=== PATIENT | male | born 1965 | race Caucasian/White ===

== ENCOUNTER 2018-10-12 18:27 | Emergency (ER) | payer BC, OTHER ==
--- OUTSIDE RECORDS SUMMARY | 2018-10-12 19:03 | XMS REPORT | Continuity of Care Document ---
:1965 External Reference #:[id number] Author Name Bishop Flor M.D. Address [address] [facility] [address] [place] [address] Care Team Providers Name Role Phone Bishop Flor MD Care Team Information Communication Specialist Unavailable Payers Type Date Identification Numbers Payment Provider Subscriber Effective: Policy Number: BC/ANTHONY [employer] Duke Maciel 2017 [id number] [facility] [address] [address] [place] [address] Effective: 2017 Policy Number: [id number] [facility] Duke Maciel Expires: 2018 PayID: [id number] [address] [place] [address] Expires: 2018 Policy Number: Medicaid/[employer] Duke Maciel [id number] PayID: [id number] [address] [place] [address] Effective: 2013 Policy Number: [id number] JUDITH Polo Maciel Expires: 2014 PayID: [id number] [address] [address] [place] [address] Expires: 2013 Policy Number: [id number] JUDITH Polo Maciel PayID: [id number] [address] [address] [place] [address] Advance Directives Description No Information Available Problems Date Description Provider Status Onset: 02/17/2012 Impotence of organic origin Franki Salas Active Onset: 02/17/2012 Tobacco user Bishop Flor M.D. Active Onset: 02/17/2012 Anxiety state Franki Salas Active Onset: 02/17/2012 Coronary arteriosclerosis Bishop Flor M.D. Active Onset: 02/17/2012 Periapical abscess without sinus Franki Salas Resolved tract Resolved: 10/09/2016 Onset: 02/17/2012 Acute sinusitis Bishop Flor M.D. Resolved Resolved: 10/09/2016 Onset: 02/17/2012 Acute bronchitis Bishop Flor M.D. Resolved Resolved: 10/09/2016 Onset: 02/17/2012 Otitis media Bishop Flor M.D. 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 ETOH Use Denies alcohol use Tobacco Use Start: Unknown Patient is a current 1/2 PACK A DAY, smoker, smokes every day SMOKING SINCE AGE 14 Smoking Status Reviewed: 09/30/18 Patient is a current 1/2 PACK A DAY, smoker, smokes every day SMOKING SINCE AGE 14 Seat Belt/Car Seat Always uses seat belt Smoke Alarms Yes Smoke Alarms Carbon Monoxide Detector: Yes Allergies, Adverse Reactions, Alerts Date Description Reaction Status Severity Comments 12/22/2011 Sulfa Antibiotics chest pains Active Medications Medication Date Status Form Strength Qnty SIG Indications Ordering Provider Neurontin Active Capsules 300mg 90caps 1 cap by M51.37 Bishop Flor 9 mouth Stevan Barrientos three times a day M50.30 M25.512 Levitra 08/13/2017 Active Tablets 20mg 6tabs 1 tab by mouth N52.9 Chacho , once as needed do Bishop Barrientos, not take more M.D. than one dose in a day---doses should be 24 hours apart Ibuprofen 01/02/2017 Active Tablets 800mg 90tabs 1 tab by mouth M25.512 Chacho, every 8 hours Ahmad M., with food as M.D. needed for pain M51.37 M50.30 Meloxicam 08/31/2018 Hx Tablets 7.5mg 60tabs take one tablet M51.37 Chacho, Ahvirgil Barrientos, - by mouth twice a M.D. 10/01/2018 day-take with food M50.30 M25.512 Bupropion HCL 04/09/2018 - Hx Tablets ER 150mg 30tabs take one F17.210 Chacho, ER (XL) 07/10/2018 24HR tablet by Bishop Barrientos, mouth every M.D. morning Amoxicillin 04/01/2018 - Hx Tablets 500mg 40tabs 2 by mouth J20.9 Chacho , 04/11/2018 twice a day Bishop Barrientos M.D. Prednisone 04/01/2018 - Hx Tablets 20mg 8tabs 2 tab by J20.9 Chacho, 04/08/2018 mouth daily Bishop Barrientos, 4 days M.D. Amoxicillin 02/05/2018 - Hx Tablets 500mg 40tabs 2 by mouth J20.9 Chacho , 02/11/2018 twice a day Bishop Barrientos M.D. Prednisone 02/05/2018 - Hx Tablets 20mg 8tabs 2 tab by J20.9 Chacho, 02/08/2018 mouth daily Bishop MRory, 4 days M.D. Topiramate 05/14/2017 - Hx Tablets 50mg 90tabs tab one by M51.37 Chacho, 10/01/2018 mouth three Ahmad M., times a day M.D. M50.30 Gabapentin 01/27/2017 - Hx Capsules 100mg 90caps tab 1 by M25.512 Chacho , 03/06/2017 mouth three Ahmad M., times a day M.D. Oxycodone HCL 10/31/2016 - Hx Tablets 10mg 90tabs tab one M79.605 Chacho , 08/30/2018 three times Ahmad M., a day M.D. M51.37 M50.30 Nystatin 11/29/2013 - Hx Suspension 750408Bxes/ML 180cc 6 cc swish Chacho, 12/13/2016 and swallow Ahmad tid x 10 M., M.D. days Vitamin D-1000 11/22/2013 - Hx Tablets 1000Unit OTC 1 by mouth E5 [facility] , Maximum 09/14/2018 twice a day 5. Ahmad Strength 9 M., M.D. Diflucan 11/21/2013 - Hx Tablets 100mg 10tabs 1 by mouth 11 Chacho, 12/01/2013 every day x 2. Ahmad 10 days 0 M., M.D. Azithromycin 11/21/2013 - Hx Tablets 250mg 6tabs take two 38 Chacho, 11/26/2013 tablets by 1. Ahmad mouth as one 4 M., M.D. dose on the first day then take one daily thereafter x 4 days Chantix 11/21/2013 - Hx Tablets 0.5mg X 11 & 1 56tabs use as F1 [facility], 12/13/2016 mg X 42 directed 7. Jaminmad 21 M.Stevan 0 Zithromax Z-Rudolph 07/28/2012 - Hx Tablets 250mg 6tabs uad [facility], 08/02/2012 Bishop Barrientos M.D. Immunizations Description No Information Available Vital Signs Date Vital Result Comment 10/01/2018 1:41pm BP Systolic 126 mmHg BP Diastolic 64 mmHg Height 68 inches 5'8" Weight 135.00 lb BMI (Body Mass Index) 20.5 kg/m2 Heart Rate 70 /min Respiratory Rate 16 /min 08/31/2018 10:06am BP Systolic 122 mmHg BP Diastolic 64 mmHg Height 68 inches 5'8" Weight 136.00 lb BMI (Body Mass Index) 20.7 kg/m2 Heart Rate 68 /min Respiratory Rate 16 /min 07/30/2018 10:57am BP Systolic 128 mmHg BP Diastolic 70 mmHg Height 68 inches 5'8" Weight 142.00 lb BMI (Body Mass Index) 21.6 kg/m2 Heart Rate 74 /min Respiratory Rate 16 /min 05/11/2018 10:27am BP Systolic 124 mmHg BP Diastolic 66 mmHg Height 68 inches 5'8" Weight 136.00 lb BMI (Body Mass Index) 20.7 kg/m2 Heart Rate 74 /min Respiratory Rate 16 /min 04/09/2018 3:59pm BP Systolic 110 mmHg BP Diastolic 64 mmHg Height 68 inches 5'8" Weight 136.00 lb BMI (Body Mass Index) 20.7 kg/m2 Heart Rate 67 /min Respiratory Rate 14 /min 04/01/2018 10:37am BP Systolic 110 mmHg BP Diastolic 58 mmHg Height 68 inches 5'8" Weight 135.00 lb BMI (Body Mass Index) 20.5 kg/m2 Heart Rate 70 /min Body Temperature 98.9 F Respiratory Rate 16 /min 03/12/2018 3:30pm BP Systolic 130 mmHg BP Diastolic 64 mmHg Height 68 inches 5'8" Weight 136.00 lb BMI (Body Mass Index) 20.7 kg/m2 Heart Rate 79 /min Respiratory Rate 16 /min 02/05/2018 3:49pm BP Systolic 100 mmHg BP Diastolic 58 mmHg Height 68 inches 5'8" Weight 138.00 lb BMI (Body Mass Index) 21.0 kg/m2 Heart Rate 85 /min Body Temperature 97.8 F Respiratory Rate 16 /min 01/04/2018 1:16pm BP Systolic 118 mmHg BP Diastolic 60 mmHg Height 68 inches 5'8" Weight 142.00 lb BMI (Body Mass Index) 21.6 kg/m2 Heart Rate 60 /min Respiratory Rate 16 /min 12/01/2017 11:03am BP Systolic 126 mmHg BP Diastolic 62 mmHg Height 68 inches 5'8" Weight 138.00 lb BMI (Body Mass Index) 21.0 kg/m2 Heart Rate 72 /min Respiratory Rate 16 /min 09/16/2017 3:53pm BP Systolic 110 mmHg BP Diastolic 72 mmHg Height 68 inches 5'8" Weight 140.00 lb BMI (Body Mass Index) 21.3 kg/m2 Heart Rate 55 /min Body Temperature 98.4 F Respiratory Rate 18 /min 08/13/2017 9:08am BP Systolic 124 mmHg BP Diastolic 62 mmHg Height 67.5 inches 5'7.50" Weight 136.00 lb BMI (Body Mass Index) 21.0 kg/m2 Heart Rate 78 /min Respiratory Rate 16 /min 07/02/2017 1:50pm BP Systolic 140 mmHg BP Diastolic 68 mmHg Height 67.5 inches 5'7.50" Weight 131.00 lb BMI (Body Mass Index) 20.2 kg/m2 Heart Rate 67 /min Respiratory Rate 16 /min 05/14/2017 4:35pm BP Systolic 108 mmHg BP Diastolic 78 mmHg Height 67.5 inches 5'7.50" Weight 136.00 lb BMI (Body Mass Index) 21.0 kg/m2 Heart Rate 82 /min Respiratory Rate 16 /min 04/10/2017 3:55pm BP Systolic 132 mmHg BP Diastolic 76 mmHg Height 67.5 inches 5'7.50" Weight 131.00 lb BMI (Body Mass Index) 20.2 kg/m2 Heart Rate 77 /min Respiratory Rate 16 /min 03/20/2017 1:52pm BP Systolic 118 mmHg BP Diastolic 70 mmHg Height 67.5 inches 5'7.50" Weight 131.00 lb BMI (Body Mass Index) 20.2 kg/m2 Heart Rate 59 /min Respiratory Rate 16 /min 03/06/2017 2:03pm BP Systolic 104 mmHg BP Diastolic 62 mmHg Height 67.5 inches 5'7.50" Weight 132.00 lb BMI (Body Mass Index) 20.4 kg/m2 Heart Rate 69 /min Respiratory Rate 16 /min 01/27/2017 4:40pm BP Systolic 118 mmHg BP Diastolic 74 mmHg Height 67.5 inches 5'7.50" Weight 135.00 lb BMI (Body Mass Index) 20.8 kg/m2 Heart Rate 71 /min Respiratory Rate 16 /min 01/02/2017 3:19pm BP Systolic 140 mmHg BP Diastolic 74 mmHg Height 67.5 inches 5'7.50" Weight 132.00 lb BMI (Body Mass Index) 20.4 kg/m2 Heart Rate 64 /min Respiratory Rate 16 /min 11/28/2016 2:15pm BP Systolic 110 mmHg BP Diastolic 76 mmHg Height 67.5 inches 5'7.50" Weight 139.00 lb BMI (Body Mass Index) 21.4 kg/m2 Heart Rate 62 /min Respiratory Rate 16 /min 10/31/2016 1:51pm BP Systolic 118 mmHg BP Diastolic 80 mmHg Height 67.5 inches 5'7.50" Weight 137.00 lb BMI (Body Mass Index) 21.1 kg/m2 Heart Rate 70 /min 10/09/2016 9:58am BP Systolic 120 mmHg BP Diastolic 78 mmHg Height 67.5 inches 5'7.50" Weight 131.00 lb BMI (Body Mass Index) 20.2 kg/m2 Heart Rate 80 /min 11/21/2013 10:35am BP Systolic 118 mmHg BP Diastolic 68 mmHg Height 67.5 inches 5'7.50" Weight 146.00 lb BMI (Body Mass Index) 22.5 kg/m2 Heart Rate 82 /min 06/11/2012 10:59am BP Systolic 122 mmHg BP Diastolic 72 mmHg Height 67.5 inches 5'7.50" Weight 143.00 lb BMI (Body Mass Index) 22.1 kg/m2 Heart Rate 60 /min Respiratory Rate 16 /min 02/20/2012 10:55am BP Systolic 116 mmHg BP Diastolic 78 mmHg Height 67.5 inches 5'7.50" Weight 141.00 lb BMI (Body Mass Index) 21.8 kg/m2 Heart Rate 72 /min Respiratory Rate 12 /min Results Test Date Facility Test Result H/L Range Note Laboratory test 05/11/2018 [facility] THC-Delta- 117.9 Positive Abnormal 5 1, 2 finding 9-Cooh I <SEE NOTE> ng/mL Hydroxybupropion Negative [facility] <SEE NOTE> ng/mL Abnormal 20 3 Bupropion Negative [facility] <SEE NOTE> ng/mL Abnormal 10 4 Topiramate Negative [facility] <SEE NOTE> ng/mL Abnormal 100 5 Ethyl Glucuronide 05/11/2018 [facility] Ethyl Glucuronide Negative ng/mL N 500 PDF SEE IMAGE CBC With Diff 05/11/2018 [facility] WBC 8.6 10*3/uL (4.1-11.0) [address] [facility] (607)- - RBC 5.22 10*6/uL (4.60-6.10) HGB 15.3 g/dL (13.5-18.0) HCT 46.5 % (41.0-53.0) MCV 89.1 fL (80.0-95.0) MCH 29.2 pg (27.0-32.0) MCHC 32.8 g/dL (32.0-36.0) RDW 14.2 % (10.5-14.5) PLT 328 10*3/uL (150-450) MPV 9.2 fL (7.1-10.7) Neut % 58.0 % (35.0-75.0) Band % 1.0 % (0.0-11.0) Lymph % 31.0 % (16.0-52.0) Calvert % 9.0 % High (0.0-8.0) Baso % 1.0 % (0.0-4.0) Neut # 5.0 10*3/uL (1.8-7.7) Band # 0.1 10*3/uL Lymph # 2.7 10*3/uL (1.2-4.8) Calvert # 0.8 10*3/uL (0.0-0.8) Baso # 0.1 10*3/uL (0.0-0.2) Aniso 1+ Poik 1+ Gaurav 1+ CMP 05/11/2018 [facility] Sodium 144 mmol/L (136-145) [address] [facility] (607)- - Potassium 4.5 mmol/L (3.6-5.2) Chloride 107 mmol/L (100-108) Co2 31 mmol/L (22-31) Anion Gap 6 mmol/L Low (7-16) Urea Nitrogen 18 mg/dL (7-24) Creatinine 1.11 mg/dL (0.80-1.30) BUN/Creat Ratio 16.2 RATIO (10.0-20.0) Glucose 88 mg/dL (70-99) Calcium 9.1 mg/dL (8.4-10.2) Total Protein 6.8 g/dL (6.4-8.2) Albumin 4.1 g/dL (3.5-4.6) Globulin 2.7 g/dL (2.7-4.3) Alb/Glob Ratio 1.5 RATIO Alkaline Phosphatase 79 U/L (45-117) Bilirubin,Total 0.5 mg/dL (0.0-1.0) Ast (Sgot) 10 U/L Low (11-39) Alt (SGPT) 16 U/L (12-78) GFR >60 ml/min/1.73m2 (>59) GFR ( Amer) >60 ml/min/1.73m2 (>59) GFR Interpretation <SEE NOTE> 6 Laboratory test 05/11/2018 [facility] Magnesium 2.5 mg/dL High (1.7-2.4 ) finding [address] [facility] (607)- - Lipid Extended 05/11/2018 [facility] Appearance CLEAR (Clear) Panel [address] [employer] [facility] (607)- - Cholesterol @ 174 mg/dL (0-200) Triglyceride @ 120 mg/dL (30-200) HDL Cholesterol @ 32 mg/dL Low (>40) 7 Chol/HDL Ratio 5.4 RATIO 8 Direct LDL @ 116 mg/dL (<130) 9 VLDL (Calc) 26 mg/dL (0-30) Hemoglobin A1c 05/11/2018 [facility] Hemoglobin A1c @ 5.3 % (4.0-6.0) 10 [address] [facility] (604)- - Est Average Glucose 105 mg/dL PSA Free And Total 05/11/2018 [facility] PSA Total 2.3 ng/mL (0.0-4.0 ) [address] [employer] [facility] (601)- - PSA Free 0.6 ng/mL PSA % Free 26 % 11 Laboratory 05/11/2018 [facility] TSH,Ultrasensitive @ 0.613 (0.360- 4.170) test finding [address] [employer] [facility] mIU/L (763)- - Amphetamine 05/11/2018 [facility] Amphetamine Negative N 50 Panel By ng/mL LC/MS/MS Methamphetamine Negative ng/mL N 50 Mdma (Ecstasy) Negative ng/mL N 50 Mda Negative ng/ml N 50 Mdea Negative ng/mL N 50 12 Barbiturates Panel By 05/11/2018 [facility] Butalbital Negative ng/mL N 100 LC/MS/MS Pentobarbital Negative ng/mL N 100 Phenobarbital Negative ng/mL N 100 Secobarbital Negative ng/mL N 100 13 Benzodiazepines 05/11/2018 [facility] 2-Hydroxyethylflurazepam Negative N 10 Panel By LC/MS/MS ng/mL 7-Aminoclonazepam Negative ng/mL N 10 Alprazolam Negative ng/mL N 10 Chlordiazepoxide Negative ng/mL N 10 Clonazepam Negative ng/mL N 10 Desalkylflurazepam Negative ng/mL N 10 Diazepam Negative ng/mL N 10 Lorazepam Negative ng/mL N 10 Midazolam Negative ng/ml N 10 Nordiazepam Negative ng/mL N 10 Alpha-hydroxyalprazolam Negative ng/mL N 10 Alpha-Hydroxymidazolam Negative ng/mL N 10 Alpha-Hydroxytriazolam Negative ng/mL N 10 Oxazepam Negative ng/mL N 10 Prazepam Negative ng/mL N 10 Temazepam Negative ng/mL N 10 14 Buprenorphine Panel By 05/11/2018 [facility] Buprenorphine Negative ng/mL N 5 LC/MS/MS Naloxone Negative ng/mL N 10 Norbuprenorphine Negative ng/mL N 5 15 Laboratory test 05/11/2018 [facility] Cocaine Panel By Negative ng/mL N 50 16 finding LC/MS/MS Methadone Panel By 05/11/2018 [facility] Eddp Negative ng/mL N 10 LC/MS/MS Methadone Negative ng/mL N 10 17 Opiates Panel By 05/11/2018 [facility] 6-Negin (Heroin Negative ng/ mL N 5 LC/MS/MS Metabolite) Codeine Negative ng/mL N 50 Hydrocodone Negative ng/mL N 50 Hydromorphone Negative ng/mL N 50 Morphine Negative ng/mL N 50 Norhydrocodone Negative ng/mL N 50 Noroxycodone Negative [facility] <SEE NOTE> ng/mL Abnormal 50 18 Noroxymorphone Negative [facility] <SEE NOTE> ng/mL Abnormal 50 19 Oxycodone Negative [facility] <SEE NOTE> ng/mL Abnormal 50 20 Oxymorphone Negative [facility] <SEE NOTE> ng/mL Abnormal 50 21 Antidepressants Panel 05/11/2018 [facility] Amitriptyline Negative ng/mL N 20 By LC/MS/MS Clomipramine Negative ng/mL N 20 Desipramine Negative ng/mL N 20 Doxepin Negative ng/mL N 20 Fluoxetine Negative ng/mL N 20 Imipramine Negative ng/mL N 20 Norclomipramine Negative ng/mL N 20 Nordoxepin Negative ng/mL N 20 Nortriptyline Negative ng/mL N 20 Sertraline Negative ng/mL N 20 Trimipramine Negative ng/mL N 20 22 Specimen Validity 05/11/2018 [facility] Creatinine, Urine 136 mg/ dL N >20 Panel Color YELLOW N Yellow pH 7.5 N 5.0-8.0 Specific [place] 1.013 N 1.001-1.035 23 Urine DRG SCR 05/11/2018 [facility] Amphetamine NEGATIVE N 1000 (12PNL-PM) Barbiturate NEGATIVE N 200 Benzodiazepine NEGATIVE N 200 Buprenorphine NEGATIVE N 15 Cannabinoid POSITIVE Abnormal 50 Cocaine NEGATIVE N 300 Methadone NEGATIVE N 300 Opiate NEGATIVE N 300 Oxycodone NEGATIVE N 300 Phencyclidine NEGATIVE N 25 24 Lipid 04/10/2017 [facility] Cholesterol @ 138 mg/dL (0-200) [address] [facility] (607)- - Triglyceride @ 75 mg/dL (30-200) HDL Cholesterol @ 39 mg/dL Low (>40) 25 Chol/HDL Ratio 3.5 RATIO 26 LDL Chol (Calc) 84 mg/dL (<130) 27 Laboratory test 04/10/2017 [facility] PSA,Total @ 1.3 ng/mL (0.0-4.0) 28 finding [address] [facility] (607)- - Hemoglobin A1c 04/10/2017 [facility] Hemoglobin A1c @ 5.7 % (4.0-6.0) [address] [facility] (607)- - Est Average Glucose 117 mg/dL 29 Laboratory 04/10/2017 [facility] TSH,Ultrasensitive @ 0.533 (0.360- 4.170) test finding 113 [employer] mIU/L (607)- - CMP 04/10/2017 [facility] Sodium 141 (136-145) [address] [facility] mmol/L (607)- - Potassium 4.0 mmol/L (3.6-5.2) Chloride 105 mmol/L (100-108) Co2 27 mmol/L (22-31) Anion Gap 9 mmol/L (7-16) Urea Nitrogen 17 mg/dL (7-24) Creatinine 0.90 mg/dL (0.80-1.30) BUN/Creat Ratio 18.9 RATIO (10.0-20.0) Glucose 90 mg/dL (70-99) Calcium 9.2 mg/dL (8.4-10.2) Total Protein 6.9 g/dL (6.4-8.2) Albumin 4.2 g/dL (3.5-4.6) Globulin 2.7 g/dL (2.7-4.3) Alb/Glob Ratio 1.6 RATIO Alkaline Phosphatase 70 U/L (45-117) Bilirubin,Total 0.4 mg/dL (0.0-1.0) Ast (Sgot) 9 U/L Low (11-39) Alt (SGPT) 21 U/L (12-78) GFR >60 ml/min/1.73m2 (>59) GFR ( Amer) >60 ml/min/1.73m2 (>59) GFR Interpretation <SEE NOTE> 30 CBC With Diff 04/10/2017 [facility] WBC 9.1 10*3/uL (4.1-11.0) [address] [facility] (607)- - RBC 5.03 10*6/uL (4.60-6.10) HGB 15.1 g/dL (13.5-18.0) HCT 44.1 % (41.0-53.0) MCV 87.8 fL (80.0-95.0) MCH 30.0 pg (27.0-32.0) MCHC 34.2 g/dL (32.0-36.0) RDW 13.8 % (10.5-14.5) PLT 229 10*3/uL (150-450) MPV 9.3 fL (7.1-10.7) Neut % 69.5 % (35.0-75.0) Lymph % 22.5 % (16.0-52.0) Calvert % 5.7 % (0.0-8.0) Eos % 1.4 % (0.0-5.0) Baso % 0.9 % (0.0-4.0) Neut # 6.3 10*3/uL (1.8-7.7) Lymph # 2.0 10*3/uL (1.2-4.8) Calvert # 0.5 10*3/uL (0.0-0.8) Eos # 0.1 10*3/uL (0.0-0.5) Baso # 0.1 10*3/uL (0.0-0.2) Laboratory test 04/10/2017 [facility] CRP, Sensitive @ 0.2 mg/L 31 finding [address] [facility] (607)- - Jennifer Drug Screen 03/31/2014 [place] [facility] Drug Screen REF#:[id number] Laboratory test 11/21/2013 [facility] TSH,Ultrasensiti 0.725 mIU/L ( 0.360- finding [address] [facility] ve @ 4.170) (607)- - Vitamin B12 @ 292 pg/mL (180-914) 33 25 Hydroxy Vit D @ 15 NG/ML Low (31-100) 34 PSA,Total @ 1.3 NG/ML (0.0-4.0) 35 CMP 11/21/2013 [facility] Sodium 143 mmol/L (136-145) [address] [facility] (607)- - Potassium 4.4 mmol/L (3.6-5.2) Chloride 107 mmol/L (100-108) Co2 26 mmol/L (22-31) Anion Gap 10 mmol/L (7-16) Urea Nitrogen 22 mg/dL (7-24) Creatinine 0.9 mg/dL (0.8-1.3) BUN/Creat Ratio 24.4 RATIO High (10.0-20.0) Glucose 86 mg/dL (70-99) Calcium 9.1 mg/dL (8.4-10.2) Total Protein 7.2 g/dL (6.4-8.2) Albumin 4.5 g/dL (3.5-4.6) Globulin 2.7 g/dL (2.7-4.3) Alb/Glob Ratio 1.7 RATIO Alkaline Phosphatase 67 U/L (50-136) Bilirubin,Total 0.4 mg/dL (0.0-1.0) Ast (Sgot) 6 U/L Low (11-39) Alt (SGPT) 18 U/L (12-78) GFR >90 ML/MIN/1.73M2 (>59) GFR ( Amer) >90 ML/MIN/1.73M2 (>59) GFR Interpretation <SEE NOTE> 36 CBC With Diff 11/21/2013 [facility] WBC 10.1 K/UL (4.1-11.0) [address] [facility] (607)- - RBC 5.15 M/UL (4.60-6.10) HGB 15.5 g/dL (13.5-18.0) HCT 45.3 % (41.0-53.0) MCV 87.9 FL (80.0-95.0) MCH 30.1 pg (27.0-32.0) MCHC 34.2 g/dL (32.0-36.0) RDW 13.9 % (10.5-14.5) PLT 234 K/UL (150-400) MPV 9.3 FL (7.1-10.7) Neut % 65.6 % (35.0-75.0) Lymph % 24.4 % (16.0-52.0) Calvert % 7.1 % (0-8.0) Eos % 1.9 % (0-5.0) Baso % 1.0 % (0-4.0) Neut # 6.6 K/UL (1.8-7.7) Lymph # 2.5 K/UL (1.2-4.8) Calvert # 0.7 K/UL (0-0.8) Eos # 0.2 K/UL (0-0.5) Baso # 0.1 K/UL (0-0.2) CMP 02/20/2012 [facility] Sodium 143 mmol/L (136-145) [address] (607)- - Potassium 4.4 mmol/L (3.6-5.2) Chloride 108 mmol/L (100-108) Co2 28 mmol/L (22-31) Anion Gap 7 mmol/L (7-16) Urea Nitrogen 19 mg/dL (7-24) Creatinine 0.9 mg/dL (0.8-1.3) BUN/Creat Ratio 21.1 RATIO High (10.0-20.0) Glucose 82 mg/dL (70-99) Calcium 9.0 mg/dL (8.4-10.2) Total Protein 7.1 g/dL (6.4-8.2) Albumin 4.4 g/dL (3.5-4.6) Globulin 2.7 g/dL (2.7-4.3) Alb/Glob Ratio 1.6 RATIO Alkaline Phosphatase 61 U/L (50-136) Bilirubin,Total 0.3 mg/dL (0.0-1.0) Ast (Sgot) 13 U/L (11-39) Alt (SGPT) 21 U/L Low (25-69) GFR >90 ML/MIN/1.73M2 (>59) GFR ( Amer) >90 ML/MIN/1.73M2 (>59) GFR Interpretation <SEE NOTE> 37 Laboratory 02/20/2012 [facility] TSH,Ultrasensitive @ 0.524 (0.360- 4.170) test finding [address] [facility] mIU/L (607)- - Hemoglobin A1c 02/20/2012 [facility] Hemoglobin A1c @ 5.1 % (4.0-6.0) [address] (607)- - Est Average Glucose 100 mg/dL 38 CBC With Diff 02/20/2012 [facility] WBC 8.8 K/UL (4.1-11.0) [address] [facility] (607)- - RBC 4.99 M/UL (4.60-6.10) HGB 15.3 GM/DL (13.5-18.0) HCT 44.5 % (41.0-53.0) MCV 89.2 FL (80.0-95.0) MCH 30.6 pg (27.0-32.0) MCHC 34.3 g/dL (32.0-36.0) RDW 13.7 % (10.5-14.5) PLT 204 K/UL (150-400) MPV 9.4 FL (7.1-10.7) Neut % 61.1 % (35.0-75.0) Lymph % 27.6 % (16.0-52.0) Calvert % 7.6 % (0-8.0) Eos % 2.8 % (0-5.0) Baso % 0.9 % (0-4.0) Neut # 5.4 K/UL (1.8-7.7) Lymph # 2.4 K/UL (1.2-4.8) Calvert # 0.7 K/UL (0-0.8) Eos # 0.2 K/UL (0-0.5) Baso # 0.1 K/UL (0-0.2) Testosterone Free & 02/20/2012 [facility] Testosterone 849 ng/dL 39 Total [address] (607)- - Sex Binding Glob 60 nmol/L 40 Testosterone Free 121 pg/mL 41 Testosterone % Free 1.4 % Low 42 1 Prescribed Medications: Oxycodone (Oxycodone), Bupropion (Bupropion), Topiramate (Topiramate), Ibuprofen (Ibuprofen) 2 117.9 Positive Inconsistent TBM-Rnqfc-3-COOH is a metabolite of THC(Marijuana) Prescribed Medications: Oxycodone (Oxycodone), Bupropion (Bupropion), Topiramate (Topiramate), Ibuprofen (Ibuprofen) 3 Negative Inconsistent Prescribed Medications: Oxycodone (Oxycodone), Bupropion (Bupropion), Topiramate (Topiramate), Ibuprofen (Ibuprofen) 4 Negative Inconsistent Prescribed Medications: Oxycodone (Oxycodone), Bupropion (Bupropion), Topiramate (Topiramate), Ibuprofen (Ibuprofen) 5 Negative Inconsistent Prescribed Medications: Oxycodone (Oxycodone), Bupropion (Bupropion), Topiramate (Topiramate), Ibuprofen (Ibuprofen) 6 NORMAL KIDNEY FUNCTION OR MILD DISEASE - GFR >OR=60 CHRONIC KIDNEY DISEASE - GFR 15 - 59 RENAL FAILURE - GFR <15 Est. GFR calculation based on the MDRD study equation, which assumes a steady state for creatinine. Est. GFR should not be used for medication dosing. 7 PER NCEP ATP III GUIDELINES: RESULTS LOWER THAN 40 MG/DL ARE SUGGESTIVE OF INCREASED RISK FOR CORONARY ARTERY DISEASE. RESULTS > OR=TO 60 MG/DL ARE CONSIDERED A NEGATIVE RISK FACTOR. 8 INTERPRETATION OF CHOL-HDL RATIO CHD RISK FEMALE MALE VERY HIGH >8.3 >14.3 HIGH 5.6- 8.3 6.7- 14.3 AVERAGE 3.7- 5.6 4.0- 6.7 BELOW AVERAGE 2.5- 3.7 2.7- 4.0 PROTECTED <2.5 <2.7 9 PER NCEP ATP III GUIDELINES: OPTIMAL < 100 NEAR OPTIMAL 100 - 129 BORDERLINE HIGH 130 - 159 HIGH 160 - 189 VERY HIGH > 189 10 Performed using Siemens [place] immunoassay. Care must be taken when interpreting HbA1c results in patients with a hemoglobin variant or decreased erythrocyte lifespan. Values 5.7 - 6.4% suggest prediabetes. Values >=6.5% are diagnostic for diabetes. REFERENCE: DIABETES CARE 2018: 41([id number]). 11 % FREE PSA PROBABILITY OF CANCER 0 - 10% 56% 10 - 15% 28% 15 - 20% 20% 20 - 25% 16% GREATER THAN 25% 8% THE FREE PSA PERCENTAGE IS AN AID IN DISTINGUISHING PROSTATE CANCER FROM BENIGN PROSTATIC CONDITIONS IN MEN AGE 50 AND OLDER WITH A TOTAL PSA BETWEEN 3 AND 10 NG/ML AND NEGATIVE DIGITAL RECTAL EXAMINATION FINDINGS. PROSTATIC BIOPSY IS REQUIRED FOR THE DIAGNOSIS OF CANCER. (See: ADIS 1998; 279: [id number]) METHOD USED TO ASSAY BOTH FREE PSA AND TOTAL PSA IS SIEMENS [employer] LOCI CHEMILUMINESCENT IMMUNOASSAY (CALIBRATION TRACEABLE TO WHO 1998, 968). RESULTS SHOULD NOT BE INTERPRETED ABSOLUTE EVIDENCE FOR THE PRESENCE OR ABSENCE OF MALIGNANT DISEASE. VALUES OBTAINED WITH DIFFERENT ASSAY METHODS OR KITS CANNOT BE USED INTERCHANGEABLY. 12 Prescribed Medications: Oxycodone (Oxycodone), Bupropion (Bupropion), Topiramate (Topiramate), Ibuprofen (Ibuprofen) 13 Prescribed Medications: Oxycodone (Oxycodone), Bupropion (Bupropion), Topiramate (Topiramate), Ibuprofen (Ibuprofen) 14 Prescribed Medications: Oxycodone (Oxycodone), Bupropion (Bupropion), Topiramate (Topiramate), Ibuprofen (Ibuprofen) 15 Prescribed Medications: Oxycodone (Oxycodone), Bupropion (Bupropion), Topiramate (Topiramate), Ibuprofen (Ibuprofen) 16 Prescribed Medications: Oxycodone (Oxycodone), Bupropion (Bupropion), Topiramate (Topiramate), Ibuprofen (Ibuprofen) 17 Prescribed Medications: Oxycodone (Oxycodone), Bupropion (Bupropion), Topiramate (Topiramate), Ibuprofen (Ibuprofen) 18 Negative Inconsistent 19 Negative Inconsistent 20 Negative Inconsistent 21 Negative Inconsistent Prescribed Medications: Oxycodone (Oxycodone), Bupropion (Bupropion), Topiramate (Topiramate), Ibuprofen (Ibuprofen) 22 Prescribed Medications: Oxycodone (Oxycodone), Bupropion (Bupropion), Topiramate (Topiramate), Ibuprofen (Ibuprofen) 23 Prescribed Medications: Oxycodone (Oxycodone), Bupropion (Bupropion), Topiramate (Topiramate), Ibuprofen (Ibuprofen) 24 Prescribed Medications: Oxycodone (Oxycodone), Bupropion (Bupropion), Topiramate (Topiramate), Ibuprofen (Ibuprofen) 25 PER NCEP ATP III GUIDELINES: RESULTS LOWER THAN 40 MG/DL ARE SUGGESTIVE OF INCREASED RISK FOR CORONARY ARTERY DISEASE. RESULTS > OR=TO 60 MG/DL ARE CONSIDERED A NEGATIVE RISK FACTOR. 26 INTERPRETATION OF CHOL-HDL RATIO CHD RISK FEMALE MALE VERY HIGH >8.3 >14.3 HIGH 5.6- 8.3 6.7- 14.3 AVERAGE 3.7- 5.6 4.0- 6.7 BELOW AVERAGE 2.5- 3.7 2.7- 4.0 PROTECTED <2.5 <2.7 27 PER NCEP ATP III GUIDELINES: OPTIMAL < 100 NEAR OPTIMAL 100 - 129 BORDERLINE HIGH 130 - 159 HIGH 160 - 189 VERY HIGH > 189 28 IN 20% OF CASES W/ BPH, PSA MAY BE 10 NG/ML OR MORE. SERUM PSA CONCENTRATION SHOULD NOT BE INTERPRETED ABSOLUTE EVIDENCE FOR THE PRESENCE OR ABSENCE OF MALIGNANT DISEASE. METHOD IS [employer] EQUIMOLAR ASSAY. (CHEMILUMINESCENCE IMMUNOASSAY, HYBRClearway Technology PartnersCH CALIBRATION) VALUES OBTAINED WITH DIFFERENT ASSAY METHODS OR KITS CANNOT BE USED INTERCHANGEABLY. 29 HEMOGLOBIN A1c INTERPRETATION: 4.0-6.0% GOOD GLYCEMIC CONTROL 6.1-6.5% AT RISK FOR HYPERGLYCEMIA >6.5% DIABETIC/ POOR GLYCEMIC CONTROL REFERENCE: DIABETES CARE 32(7), 2009 IF A1c RESULT IS INCONSISTENT WITH CLINICAL ESTIMATES OF GLYCEMIC CONTROL, AN INTERFERING Hb VARIANT SHOULD BE CONSIDERED. 30 NORMAL KIDNEY FUNCTION OR MILD DISEASE - GFR >OR=60 CHRONIC KIDNEY DISEASE - GFR 15 - 59 RENAL FAILURE - GFR <15 Est. GFR calculation based on the MDRD study equation, which assumes a steady state for creatinine. Est. GFR should not be used for medication dosing. 31 RELATIVE RISK CATEGORY AND AVERAGE hs-CRP LEVEL: LOW RISK < 1.0 MG/L AVERAGE RISK 1.0 to 3.0 MG/L HIGH RISK > 3.0 MG/L 32 FORWARDED TO REFERENCE LABORATORY. 33 VIT B12 REFERENCE RANGE: DEFICIENT: < 146 pg/mL INDETERMINATE: 146 - 179 pg/mL NORMAL: 180 - 914 pg/mL 34 A REVIEW OF THE LITERATURE SUGGESTS THE FOLLOWING RANGES FOR THE CLASSIFICATION OF 25-OH VITAMIN D STATUS: VITAMIN D STATUS 25-OH VITAMIN D DEFICIENCY <20 NG/ML INSUFFICIENCY 20-30 NG/ML SUFFICIENCY 31 - 100 NG/ML TOXICITY > 100 NG/ML A PEDIATRIC REFERENCE RANGE HAS NOT BEEN ESTABLISHED USING THIS METHOD. 35 IN 20% OF CASES W/ BPH, PSA MAY BE 10 NG/ML OR MORE. SERUM PSA CONCENTRATION SHOULD NOT BE INTERPRETED ABSOLUTE EVIDENCE FOR THE PRESENCE OR ABSENCE OF MALIGNANT DISEASE. METHOD IS [employer] ACCESS/DXI EQUIMOLAR ASSAY. VALUES OBTAINED WITH DIFFERENT ASSAY METHODS OR KITS CANNOT BE USED INTERCHANGEABLY. 36 NORMAL KIDNEY FUNCTION OR MILD DISEASE - GFR >OR=60 CHRONIC KIDNEY DISEASE - GFR 15 - 59 RENAL FAILURE - GFR <15 Est. GFR calculation based on the MDRD study equation, which assumes a steady state for creatinine. Est. GFR should not be used for medication dosing. 37 NORMAL KIDNEY FUNCTION OR MILD DISEASE - GFR >OR=60 CHRONIC KIDNEY DISEASE - GFR 15 - 59 RENAL FAILURE - GFR <15 Est. GFR calculation based on the MDRD study equation, which assumes a steady state for creatinine. Est. GFR should not be used for medication dosing. 38 HEMOGLOBIN A1c INTERPRETATION: 4.0-6.0% GOOD GLYCEMIC CONTROL 6.1-6.5% AT RISK FOR HYPERGLYCEMIA >6.5% DIABETIC/ POOR GLYCEMIC CONTROL REFERENCE: DIABETES CARE 32(7), 2008 IF A1c RESULT IS INCONSISTENT WITH CLINICAL ESTIMATES OF GLYCEMIC CONTROL, AN INTERFERING Hb VARIANT SHOULD BE CONSIDERED. 39 Reference range: 300 to 890 INTERPRETIVE INFORMATION: Testosterone, Adult Male To convert to nmol/L, multiply ng/dL by 0.0347. 40 Reference range: 11 to 80 41 Reference range: 47 to 244 INTERPRETIVE INFORMATION: Testosterone, Free Rishi Stage IV 35 - 169 pg/mL Rishi Stage V 41 - 239 pg/mL To convert to pmol/L, multiply pg/mL by 3.47. The concentration of Free Testosterone is derived from a mathematical expression based on the constant for the binding of testosterone to sex hormone binding globulin (SHBG). 42 Reference range: 1.6 to 2.9 Performed by [facility], [address] [place] [id number] [email or web address], Selena Horne MD, Lab. Director Procedures Date Code Description Status 10/01/2018 49381 Visual Screening Test Completed 10/01/2018 27402 EKG Completed 10/01/2018 22193 Audiometry, [place], Screening Completed 04/01/2018 93235 Spirometry Completed 04/01/2018 36602 Tympanometry Completed 02/05/2018 52774 Spirometry Completed 02/05/2018 76317 Tympanometry Completed 06/11/2012 96325 Visual Screening Test Completed 06/11/2012 23267 Diagnostic [place]ekesy Audiometry Completed 06/20/2011 35687 Spirometry Completed 06/20/2011 08396 Tympanometry Completed 02/04/2011 37037 Tympanometry Completed 06/27/2010 43176 Visual Screening Test Completed 06/27/2010 50563 Diagnostic [place] Audiometry Completed 09/20/2009 51883 Tympanometry Completed 12/01/2008 92928 Spirometry Before/After Brochodilator Completed 09/11/2008 89683 Oximetry Pulse Or Ear Completed 07/04/2008 34875 Visual Screening Test Completed 07/04/2008 12759 Oximetry Pulse Or Ear Completed 07/04/2008 73673 Spirometry Completed 07/04/2008 09008 EKG Completed 07/04/2008 99168 Diagnostic [place]esy Audiometry Completed Encounters Type Date Location Provider Dx Diagnosis Office Visit 10/01/2018 Bishop Peck M51.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 disc degeneration, lumbosacral region M50.30 Other cervical disc degeneration, unsp cervical region M25.512 Pain in left shoulder L20.9 Atopic dermatitis, unspecified J30.9 Allergic rhinitis, unspecified M79.605 Pain in left leg M79.602 Pain in left arm I10 Essential (primary) hypertension E55.9 Vitamin D deficiency, unspecified N52.9 Male erectile dysfunction, unspecified J44.9 Chronic obstructive pulmonary disease, unspecified F17.210 Nicotine dependence, cigarettes, uncomplicated Z79.891 [facility] (current) use of opiate analgesic J20.9 Acute bronchitis, unspecified J01.40 Acute pansinusitis, unspecified H66.93 Otitis media, unspecified, bilateral R06.02 Shortness of breath R05 Cough R09.81 Nasal congestion Office Visit 03/12/2018 3:30p Bishop Peck, M51.37 Other intervertebral M.D. 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 disc degeneration, lumbosacral region M50.30 Other cervical disc degeneration, unsp cervical region M25.512 Pain in left shoulder L20.9 Atopic dermatitis, unspecified J30.9 Allergic rhinitis, unspecified M79.605 Pain in left leg M79.602 Pain in left arm I10 Essential (primary) hypertension E55.9 Vitamin D deficiency, unspecified N52.9 Male erectile dysfunction, unspecified J44.9 Chronic obstructive pulmonary disease, unspecified F17.210 Nicotine dependence, cigarettes, uncomplicated Z79.891 [facility] (current) use of opiate analgesic J20.9 Acute bronchitis, unspecified J01.40 Acute pansinusitis, unspecified H66.93 Otitis media, unspecified, bilateral R06.02 Shortness of breath R05 Cough R09.81 Nasal congestion Office Visit 01/04/2018 12:15p Bishop Peck, M51.37 Other intervertebral M.D. disc degeneration, lumbosacral region M50.30 Other cervical disc degeneration, unsp cervical region M25.512 Pain in left shoulder L20.9 Atopic dermatitis, unspecified J30.9 Allergic rhinitis, unspecified M79.605 Pain in left leg M79.602 Pain in left arm I10 Essential (primary) hypertension E55.9 Vitamin D deficiency, unspecified N52.9 Male erectile dysfunction, unspecified J44.9 Chronic obstructive pulmonary disease, unspecified F17.210 Nicotine dependence, cigarettes, uncomplicated Z79.891 [facility] (current) use of opiate analgesic Office Visit 12/01/2017 11:15a Bishop Peck, M51.37 Other intervertebral M.D. disc degeneration, lumbosacral region M50.30 Other cervical disc degeneration, unsp cervical region M25.512 Pain in left shoulder L20.9 Atopic dermatitis, unspecified J30.9 Allergic rhinitis, unspecified M79.605 Pain in left leg M79.602 Pain in left arm I10 Essential (primary) hypertension E55.9 Vitamin D deficiency, unspecified N52.9 Male erectile dysfunction, unspecified Z68.21 Body mass index (BMI) 21.0-21.9, adult J44.9 Chronic obstructive pulmonary disease, unspecified F17.210 Nicotine dependence, cigarettes, uncomplicated Z79.891 [facility] (current) use of opiate analgesic Z00.01 Encounter for general adult medical exam w abnormal findings Office Visit 09/16/2017 3:45p Francis Sanchez, M51.37 Other intervertebral PA disc degeneration, lumbosacral region F17.210 Nicotine dependence, cigarettes, uncomplicated M50.30 Other cervical disc degeneration, unsp cervical region M25.512 Pain in left shoulder Z79.891 [facility] (current) use of opiate analgesic L20.9 Atopic dermatitis, unspecified J30.9 Allergic rhinitis, unspecified M79.605 Pain in left leg M79.602 Pain in left arm I10 Essential (primary) hypertension E55.9 Vitamin D deficiency, unspecified N52.9 Male erectile dysfunction, unspecified Office Visit 08/13/2017 9:45a Francis Sanchez, M51.37 Other intervertebral PA disc degeneration, lumbosacral region F17.210 Nicotine dependence, cigarettes, uncomplicated M50.30 Other cervical disc degeneration, unsp cervical region M25.512 Pain in left shoulder 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 L20.9 Atopic dermatitis, unspecified J30.9 Allergic rhinitis, unspecified M79.605 Pain in left leg M79.602 Pain in left arm I10 Essential (primary) hypertension E55.9 Vitamin D deficiency, unspecified N52.9 Male erectile dysfunction, unspecified Office Visit 07/02/2017 3:00p Franki ManP M51.37 Other intervertebral disc degeneration, lumbosacral region F17.210 Nicotine dependence, cigarettes, uncomplicated M50.30 Other cervical disc degeneration, unsp cervical region Office Visit 05/14/2017 4:30p Franki ManP M51.37 Other intervertebral disc degeneration, lumbosacral region F17.210 Nicotine dependence, cigarettes, uncomplicated M50.30 Other cervical disc degeneration, unsp cervical region Office Visit 04/10/2017 3:45p Franki Man FUEL AGENT M25.512 Pain in left shoulder M50.30 Other cervical disc degeneration, unsp cervical region M51.37 Other intervertebral disc degeneration, lumbosacral region F17.210 Nicotine dependence, cigarettes, uncomplicated 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 R63.4 Abnormal weight loss Office Visit 03/20/2017 1:45p Franki ManP M25.512 Pain in left shoulder M50.30 Other cervical disc degeneration, unsp cervical region M51.37 Other intervertebral disc degeneration, lumbosacral region Office Visit 03/06/2017 2:00p Franki Man M25.512 Pain in left shoulder M50.30 Other cervical disc degeneration, unsp cervical region M51.37 Other intervertebral disc degeneration, lumbosacral region F17.210 Nicotine dependence, cigarettes, uncomplicated Office Visit 01/27/2017 4:30p Franki Man M25.512 Pain in left shoulder M50.30 Other cervical disc degeneration, unsp cervical region M51.37 Other intervertebral disc degeneration, lumbosacral region M79.605 Pain in left leg Office Visit 01/02/2017 3:15p Bishop Peck, M25.512 Pain in left shoulder M.D. M50.30 Other cervical disc degeneration, unsp cervical region M51.37 Other intervertebral disc degeneration, lumbosacral region M79.605 Pain in left leg M79.602 Pain in left arm L20.9 Atopic dermatitis, unspecified J30.9 Allergic rhinitis, unspecified J44.9 Chronic obstructive pulmonary disease, unspecified F17.210 Nicotine dependence, cigarettes, uncomplicated N52.9 Male erectile dysfunction, unspecified E55.9 Vitamin D deficiency, unspecified I10 Essential (primary) hypertension Office Visit 10/31/2016 1:45p Franki ManP F17.210 Nicotine dependence, cigarettes, uncomplicated M54.5 Low back pain M54.2 Cervicalgia Office Visit 10/09/2016 10:00a Franki Man H92.02 Otalgia, left ear F17.210 Nicotine dependence, cigarettes, uncomplicated Office Visit 11/21/2013 10:45a Franki Man 305.1 Tobacco Use Disorder 112.0 Candidiasis Mouth 305.1 Tobacco Use Disorder 401.1 Hypertension Benign 381.4 Otitis Media Acute Or Chronic Nonsuppurative 788.41 Urinary Frequency Office Visit 06/11/2012 11:00a Franki Man V70.0 Examination General Medical Routine AT Health Care Facility 305.1 Tobacco Use Disorder Office Visit 02/20/2012 10:45a Franki Man 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 466.0 Bronchitis Acute 491.21 Bronchitis Obstructive Chronic W/Acute Exacerbation 382.9 Otitis Media Unspec 305.1 Tobacco Use Disorder Office Visit 02/04/2011 2:30p Franki Man FUEL AGENT 461.8 Sinusitis Acute Other Office Visit 06/27/2010 9:30a Franki Man FUEL AGENT V70.0 Examination General Medical Routine AT Health Care Facility Office Visit 02/15/2010 11:30a Franki Man FUEL AGENT 607.84 Impotence Organic Origin 305.1 Tobacco Use Disorder Office Visit 09/20/2009 3:30p Shirley Josue Franki [employer]EL AGENT 388.70 Otalgia & Earache Unspec 461.8 Sinusitis Acute Other 305.1 Tobacco Use Disorder Office Visit 07/17/2009 3:00p Franki Man [employer]ENT 789.07 Pain Abdominal Generalized 601.0 Prostatitis Acute 300.00 Anxiety State Unspec V76.44 Screening For Malig Miguel Prostate Plan of Treatment 10/01/2018 - Bishop Flor M.D.M51.37 Other intervertebral disc degeneration , lumbosacral regionNew Medication:Neurontin 300 mg - 1 cap by mouth three times a dayComments:EXERCISE/HEAT /MESSAGEAVOID HEAVY LIFTING WT LOSSTYLENOL OR MOTRIN PRN DUR UZHIWZML88.30 Other cervical disc degeneration, unspecified cervical regioNew Medication:Neurontin 300 mg - 1 cap by mouth three times a dayComments:EXERCISE/HEAT /MESSAGEAVOID HEAVY LIFTING WT LOSSTYLENOL OR MOTRIN PRN DUR SWJQLHPR58.512 Pain in left shoulderNew Medication:Neurontin 300 mg - 1 cap by mouth three times a dayComments:EXERCISE/HEAT /MESSAGE AVOID HEAVY LIFTINGTYLENOL OR MOTRIN PRN DUR ZKPCKTLA79.9 Atopic dermatitis, unspecifiedComments:SKIN CARE INSTRUCTIONS LOTION OR BABY OIL 2-3 APPLICATION PER DAYUSE MOISTURIZING SOAPAVOID PROLONGED WATER EXPOSUREAVOID USING HOT WATER IN HGSSGCS42.9 Allergic rhinitis, unspecifiedComments:INCREASE PO FLUID USE ANTIHISTAMINE PRN SECOND HAND SMOKING AVOIDANCE SMOKING ZDZXVPIEHE84.605 Pain in left legComments:TYLENOL OR MOTRIN PRN EXERCISE/HEAT/MESSAGE DUR WWAHURIN89.602 Pain in left armComments:TYLENOL OR MOTRIN PRN EXERCISE/HEAT/ MESSAGE DUR [id number] Essential (primary) hypertensionComments:CHECK BP TIW ( PRN)DIET AND FLUID COUNSELING LOW SODIUM DIETWT LOSSF/U LABE55.9 Vitamin D deficiency, unspecifiedComments:INCREASE EXPOSURE TO SUNREVIEW OF DIETN52.9 Male erectile dysfunction, unspecifiedComments:COUNCELLING AND TEACHING ON DIFEEERENT TREATMENT KJNEJCUJ14.9 Chronic obstructive pulmonary disease, unspecifiedComments:INCREASE PO FLUIDRESTSMOKING IUDOBAQXZS06.210 Nicotine dependence, cigarettes, uncomplicatedComments:SMOKING CESSATION JJZVFNJXHHAO36.891 superintendent container terminal (current) use of opiate analgesicComments:DUR CHECKEDPT WLL NOT BE RX ANY PAIN RX FROM THIS RRDVMKU45.1 Benign prostatic hyperplasia with lower urinary tract symptomsComments:STABLEF/U PSAZ00.01 Encounter for general adult medical examination with abnormal findingsComments: GOOD NUTRITION /EXERCISEDENTAL/ FLOSSING/ SELF CAREDROWNING/ SUN SAFETYSEAT BELT / DRIVING SAFETYSPORT BIKE/ HELMET USESPORTS/ INJURY PREVENTIONVIOLENCE PREVENTION/ GUN SAFETYPARENTING ADVICE"SAFE AT HOME"SEX EDUCATION/ COUNSELINGBREAST/ TESTICULAR SELF EXAMEDUCATION GOALS/ ACTIVITIESLIMIT TV/ INTERNETUSETOBACCO/ ALCOHOL/ DRUGS/ INHALANTSPEER REFUSAL SKILLSSOCIAL INTERACTIONFAMILY FUNCTIONINGSELF CONTROLDEPRESSION/ ANXIETYNEXT APPOINTMENTYEARLY PHYSICAL WELLNESS EVALUATION RTC FOR FBW
[2018-10-12 19:09] VITALS: BP 145/70
--- NOTE | 2018-10-12 19:44 | UC ---
FLU HPI - HPI Summary HPI Summary: 52-year-old male comes in with a chief complaint of more than 10 days of influenza-like symptoms. Initially started with body aches runny nose chest congestion. Over time it's developed into nausea vomiting diarrhea. He was also having fevers he using [id number] medications which did help with symptoms with the symptoms returned. He has been able to tolerate liquids however eating solids makes very nauseous. Patient 7 some body aches and fevers. He reports that his primary care doctor using Vicks bronchitis with amoxicillin and prednisone. Usually his bronchitis does not have any problems with nausea vomiting diarrhea. Abdominal pain occurs he gets some cramping diffuse abdominal pain but then it goes away. Has no Abdominal pain at this time. - History of Current Complaint Chief Complaint: UCGeneralIllness Stated Complaint: FEVER/VOMITING Time Seen by Provider: 10/12/18 19:30 Pain Intensity: 0 - Allergy/Home Medications Allergies/Adverse Reactions: Allergies Allergy/AdvReac Type Severity Reaction Status Date / Time codeine Allergy Headache Verified 10/12/18 19:08 Sulfa (Sulfonamide Allergy Difficulty Verified 10/12/18 19:08 Antibiotics) Breathing PMH/Surg Hx/FS Hx/Imm Hx Previously Healthy: Yes - Surgical History Surgical History: Yes Surgery Procedure, Year, and Place: dental extraction. rt shoulder surgery - Family History Known Family History: Positive: Non-Contributory - Social History Alcohol Use: None Substance Use Type: None Smoking Status (MU): Light Every Day Tobacco Smoker Type: Cigarettes Amount Used/How Often: 1/2 ppd Household Exposure Type: Cigarettes Review of Systems All Other Systems Reviewed And Are Negative: Yes Constitutional: Positive: Fever, Chills Skin: Positive: Negative Eyes: Positive: Negative ENT: Positive: Sore Throat, Nasal Discharge, Sinus Congestion Respiratory: Positive: Cough Cardiovascular: Positive: Negative Gastrointestinal: Positive: Vomiting, Diarrhea, Nausea. Negative: Abdominal Pain Motor: Positive: Negative Neurovascular: Positive: Negative Musculoskeletal: Positive: Myalgia Neurological: Positive: Negative Psychological: Positive: Negative Is Patient Immunocompromised?: No Physical Exam Triage Information Reviewed: Yes Appearance: No Pain Distress, Well-Nourished, Ill-Appearing - MILD Vital Signs: Initial Vital Signs Temp 99.2 F 10/12/18 19:05 Pulse 94 10/12/18 19:05 Resp 16 10/12/18 19:05 BP 145/70 10/12/18 19:05 Pulse Ox 98 10/12/18 19:05 Vital Signs Reviewed: Yes Eye Exam: Normal Eyes: Positive: Conjunctiva Clear ENT: Positive: Pharyngeal erythema, Nasal congestion, Nasal drainage, TMs normal Neck exam: Normal Neck: Positive: Supple Respiratory: Positive: Lungs clear, Normal breath sounds, No respiratory distress Cardiovascular: Positive: RRR Abdomen Description: Positive: Nontender, Soft Musculoskeletal Exam: Normal Musculoskeletal: Positive: Strength Intact, ROM Intact Neurological Exam: Normal Neurological: Positive: Alert, Muscle Tone Normal Psychological Exam: Normal Psychological: Positive: Age Appropriate Behavior Skin Exam: Normal Flu Course/Dx - Course Course Of Treatment: Patient's symptoms sound as if he has influenza that started 10 days ago to include nausea vomiting diarrhea. Now with 10 days of symptoms and being a smoker is developed a bronchitis which were treated with amoxicillin and prednisone as the patient reports this is what helped in the past. He has no focal abdominal pain. Prescription for Zofran to help with nausea. Plan is the patient follow-up his primary care doctor if he worsens he is to get reevaluated. - Differential Dx/Diagnosis Provider Diagnosis: Bronchitis, Nausea vomiting and diarrhea Discharge - Sign-Out/Discharge Documenting (check all that apply): Patient Departure All imaging exams completed and their final reports reviewed: No Studies - Discharge Plan Condition: Stable Disposition: HOME Prescriptions: Amoxicillin PO (*) [Amoxicillin 500 MG CAP*] 500 mg PO TID #30 cap Ondansetron ODT TAB* [Zofran 4 MG Odt TAB*] 4 mg PO Q6H PRN #15 tab.odt PRN Reason: Nausea predniSONE TAB* [Deltasone 20 MG TAB*] 40 mg PO DAILY #10 tab Patient Education Materials: Acute Bronchitis (ED), Acute Nausea and Vomiting ( ED), Acute Diarrhea (ED) Referrals: Bishop Flor MD [Primary Care Provider] - Additional Instructions: FOLLOW UP WITH YOUR DOCTOR IF NOT COMPLETELY IMPROVED. GET RECHECKED SOONER WITH ANY WORSENING OF YOUR CONDITION OR QUESTIONS OR CONCERNS. - Billing Disposition and Condition Condition: STABLE Disposition: Home
== END 2018-10-12 19:49 | disposition home or self-care (01) ==
LOC: UCCORT 18:27
DX: J40 Bronchitis, not specified as acute or chronic (principal); R11.2 Nausea with vomiting, unspecified; R19.7 Diarrhea, unspecified; M79.10 Myalgia, unspecified site; F17.210 Nicotine dependence, cigarettes, uncomplicated; Z88.5 Allergy status to narcotic agent; Z88.2 Allergy status to sulfonamides
CPT/HCPCS: 99202; G0463